=== PATIENT | female | born 2000 | race Caucasian/White ===

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

== ENCOUNTER 2021-11-24 06:00 | Inpatient (IN) | payer OTHER ==
[2021-11-24] VITALS (52 sets, daily range): BP systolic 97–148; BP diastolic 50–88
[~2021-11-24] VITALS: Ht 162 cm; Wt 87.7 kg
[2021-11-24] MEDS ORDERED: DEXTROSE 10% IV SOLUTION 1,000 ML IV PRN ×2 (06:45→09:30)
[2021-11-24] MEDS ORDERED: MINERAL OIL 30 ML TOP PRN (06:45)
[2021-11-24] MEDS ORDERED: D5W 1000 ML IV SOLUTION 1,000 ML IV SCH (06:45)
[2021-11-24 06:59] LABS: BASOPHILS # (AUTO) 0.1 10^3/uL (0.0-0.1); BASOPHILS % (AUTO) 1 % (0-10); EOSINOPHILS # (AUTO) 0.2 10^3/uL (0.0-0.3); EOSINOPHILS % (AUTO) 2 % (0-10); HEMATOCRIT 40 % (35-52); HEMOGLOBIN 13.3 g/dL (11.5-16.0); LYMPHOCYTES # (AUTO) 1.5 10^3/uL (1.0-4.0); LYMPHOCYTES % (AUTO) 15 % (12-44); MEAN CORPUSCULAR HEMOGLOBIN 30 pg (25-34); MEAN CORPUSCULAR HGB CONC 34 g/dL (32-36); MEAN CORPUSCULAR VOLUME 88 fL (80-99); MEAN PLATELET VOLUME 10.4 fL (9.0-12.2); MONOCYTES # (AUTO) 1.1 10^3/uL (0.0-1.0); MONOCYTES % (AUTO) 10 % (0-12); NEUTROPHILS # (AUTO) 7.5 10^3/uL (1.8-7.8); NEUTROPHILS % (AUTO) 72 % (42-75); PLATELET COUNT 238 10^3/uL (130-400); WHITE BLOOD COUNT 10.4 10^3/uL (4.3-11.0)
[2021-11-24] MEDS ORDERED: LACTATED RINGERS 1,000 ML IV SCH (07:45)
[2021-11-24] MEDS ORDERED: AMPICILLIN FOR IV USE 2,000 MG in NS (IVPB) 50 ML IV SCH (08:24)
[2021-11-24] MEDS: OXYTOCIN PRE-MIX DRIP 500 ML IV SCH ×4 (08:40→20:20)
[2021-11-24] MEDS ORDERED: INSU100I10 SQ (08:54)
[2021-11-24] MEDS ORDERED: INSU100I23 SQ (08:54)
--- NOTE | 2021-11-24 08:55 | History & Physical-OB ---
OB - Chief Complaint & HPI Date/Time Date of Admission: Date of Admission: Nov 24, 2021 at 06:15 Date seen by a Provider: Nov 24, 2021 Time Seen by a Provider: 08:35 Chief Complaint/History OB-Reason for Admission/Chief: Obstetrical Complication Hx : 1 Hx Para: 0 Expected Date of Delivery: Nov 30, 2021 Gestational Age in Weeks: 39 Gestational Age in Days: 1 Indication for induction: medical complication (pre-existing type I diabetes) History of Labs O+, antibody neg, RNI. HIV/HepB/RPR NR. GC/chlamydia neg. GBS pos. Other Type I diabetes complicating , followed with high risk throughout , using carb counting for insulin dosing at home. Reassuring weekly BPPs and EFW was 3330 on 11/19. Allergies and Home Medications Allergies Coded Allergies: No Known Drug Allergies (Unverified , 09/06/17) Patient Home Medication List Home Medication List Reviewed: Yes Insulin Glargine,Hum.rec.anlog (Lantus Solostar) 100 Unit/Ml (3 Ml) Insuln.pen, 38 UNIT SQ HS, (Reported) Entered as Reported by: AWA HOWELL on 11/24/21853 Last Action: New Order Insulin Lispro (Humalog Kwikpen) 100 Unit/Ml Insuln.pen, 100 UNIT SQ TIDAC, (Reported) Entered as Reported by: AWA HOWELL on 11/24/21853 Last Action: New Order OB - History Hx of Present Care: Yes Ultrasounds: Normal mid trimester US Obstetrical Complications: Other (type I diabetes) Information Induced Hypertension: No Maternal Gestational Diabetes: Yes Hemorrhage: No Obstetrical History Hx : 1 Hx Para: 0 Hx # Term Pregnancies: 0 Hx # Pregnancies: 0 Number of Living Children: 0 Hx Multiple Gestation: No Hx Ectopic : No Hx Stillbirth: No Hx Induced Hypertens: No Hx Maternal Gestational Diabet: Yes Patient Past Medical History PMHx: Type I diabetes SurgHx: denies Social History/Family History Alcohol Use: Denies Use Recreational Drug Use: No Smoking Cessation: Never smoker 2nd Hand Smoke Exposure: No Immunizations Influenza Vaccine Up-to-Date: Yes; Up-to-Date First/Initial COVID19 Vaccine: 12/29/2020 Second COVID19 Vaccination: `01/30/2021 Tetanus Booster (TDap): Less than 5yrs (10/02/21) Rubella: not immune RPR/VDRL: Negative GBS Status: Positive HBsAG: Negative OB - Admission Exam Physical Exam Vitals: Vital Signs 11/24/21 06:39 Temp 36.7 Pulse 102 Resp 18 Pulse Ox 97 O2 Delivery Room Air HEENT: NCAT Abdomen: Non tender Extremities: Normal Cervical Dilatation: 3cm Effacement: 50% Station: -2 Membranes: Intact Heart Rate: 150's Decelerations: No Decelerations Short Term Variability: Present Intermediate Variability: Average (6-25) Contractions on Admission: 6-10 Minutes Apart Marcum Scoring Tool (Modified) Dilation (cm): 3-4cm (2) Effacement (%): 31-51% (1) Descent/Station: -2 (1) Cervix Consistency: Soft (2) Cervix Position: Anterior (2) Subtract 1 point for: Nulliparity (-1) Marcum Score: 7 Labs Laboratory Tests Test 11/24/21 06:40 Range/Units White Blood Count 10.4 4.3-11.0 10^3/uL Red Blood Count 4.47 3.80-5.11 10^6/uL Hemoglobin 13.3 11.5-16.0 g/dL Hematocrit 40 35-52 % Mean Corpuscular Volume 88 80-99 fL Mean Corpuscular Hemoglobin 30 25-34 pg Mean Corpuscular Hemoglobin Concent 34 32-36 g/dL Red Cell Distribution Width 12.9 10.0-14.5 % Platelet Count 238 130-400 10^3/uL Mean Platelet Volume 10.4 9.0-12.2 fL Immature Granulocyte % (Auto) 1 % Neutrophils (%) (Auto) 72 42-75 % Lymphocytes (%) (Auto) 15 12-44 % Monocytes (%) (Auto) 10 0-12 % Eosinophils (%) (Auto) 2 0-10 % Basophils (%) (Auto) 1 0-10 % Neutrophils # (Auto) 7.5 1.8-7.8 10^3/uL Lymphocytes # (Auto) 1.5 1.0-4.0 10^3/uL Monocytes # (Auto) 1.1 H 0.0-1.0 10^3/uL Eosinophils # (Auto) 0.2 0.0-0.3 10^3/uL Basophils # (Auto) 0.1 0.0-0.1 10^3/uL Immature Granulocyte # (Auto) 0.1 0.0-0.1 10^3/uL Glucose Level 159 H 70-105 MG/DL OB - Assessment/Plan/Diagnosis Assessment Admission Dx Term intrauterine at 39w1d Type I diabetes complicating GBS positive Rubella non-immune Admission Status: Inpatient Order (span 2 midnights) Reason for Inpatient Admission: Labor, delivery and course Plan Plan: Induction Induction Method: per Pitocin Protocol Problems: (1) Encounter for induction of labor Assessment & Plan: Pitocin per protocol (2) Positive testing for group B Streptococcus Assessment & Plan: Ampicillin (3) Rubella non-immune status, antepartum Assessment & Plan: MMR (4) Type 1 diabetes mellitus complicating , antepartum Assessment & Plan: Insulin drip, will use protocol published by Eliel et al. AWA HOWELL MD Nov 24, 2021 08:55
[2021-11-24] MEDS ORDERED: inSUlin (REGULAR) HUMAN 1 UNIT/0.01 ML (CHARGE PER UNIT) SC NR (09:12)
[2021-11-24] MEDS ORDERED: inSUlin (REGULAR) HUMAN 1 UNIT/0.01 ML (CHARGE PER UNIT) IV NR (09:31)
[2021-11-24] MEDS: inSUlin (REGULAR) HUMAN 1 UNIT/0.01 ML (CHARGE PER UNIT) IV SCH ×2 (12:32→18:55)
[2021-11-24] MEDS: AMPICILLIN FOR IV USE 1,000 MG in NS (IVPB) 50 ML IV SCH ×2 (12:40→17:02)
--- NOTE | 2021-11-24 12:47 | Labor Progress Note ---
Labor Progress Note Labor Progress Note Date Seen by Provider: Nov 24, 2021 Time Seen by Provider: 12:30 Subjective: Pt denies complaints. Objective: Cervical exam: /-3 Consistency: soft Position: anterior Presentation: vertex heart tones: 160 beats per minute, moderate variability, reactive Tocometer: 5 ctx/10 minutes Assessment/Plan: Anjali Piña is a (21 /Para 1 / 0,Gestational Age (wks)39 here for induction of labor due to type I diabetes complicating . AROM done at time of exam with clear fluid return. CEFM/TOCO Continue pitocin Anesthesia: none Anticipate vaginal delivery. Vitals - Labs Vital Signs - I&O Vital Signs Date Time Temp Pulse Resp B/P (MAP) Pulse Ox O2 Delivery O2 Flow Rate FiO2 11/24/21 10:45 83 20 115/69 (84) 100 Room Air 11/24/21 10:30 80 20 124/70 (88) 98 Room Air 11/24/21 10:15 80 20 114/71 (85) 100 Room Air 11/24/21 10:00 80 20 114/71 (85) 100 Room Air 11/24/21 09:45 86 22 100 Room Air 11/24/21 09:30 88 22 121/74 (90) 99 Room Air 11/24/21 09:15 88 22 121/74 (90) 100 Room Air 11/24/21 09:00 98 22 116/75 (89) 100 Room Air 11/24/21 09:00 94 22 117/74 (88) 100 Room Air 11/24/21 08:45 81 22 118/74 (89) 100 Room Air 11/24/21 08:30 36.3 93 20 106/63 (77) 100 Room Air 11/24/21 06:39 36.7 102 18 97 Room Air Labs Laboratory Tests 11/24/21 06:40: White Blood Count 10.4, Red Blood Count 4.47, Hemoglobin 13.3, Hematocrit 40, Mean Corpuscular Volume 88, Mean Corpuscular Hemoglobin 30, Mean Corpuscular Hemoglobin Concent 34, Red Cell Distribution Width 12.9, Platelet Count 238, Mean Platelet Volume 10.4, Immature Granulocyte % (Auto) 1, Neutrophils (%) (Auto) 72, Lymphocytes (%) (Auto) 15, Monocytes (%) (Auto) 10, Eosinophils (%) (Auto) 2, Basophils (%) (Auto) 1, Neutrophils # (Auto) 7.5, Lymphocytes # (Auto) 1.5, Monocytes # (Auto) 1.1H, Eosinophils # (Auto) 0.2, Basophils # (Auto) 0.1, Immature Granulocyte # (Auto) 0.1, Glucose Level 159H AWA HOWELL MD Nov 24, 2021 12:47
[2021-11-24] MEDS ORDERED: CATHETER FLUSH 10 ML SYR IV SCH (14:00)
[2021-11-24] MEDS ORDERED: fentaNYL INJ 100 MCG/2 ML AMP ONE (17:05)
[2021-11-24] MEDS ORDERED: fentaNYL INJ 100 MCG/2 ML AMP IVP PRN (17:15)
[2021-11-24] MEDS ORDERED: LIDOCAINE/EPI 2% 1:200,00 (XYLOCAINE) 10 ML VIAL ONE (17:52)
[2021-11-24] MEDS ORDERED: LIDOCAINE/EPI 2% 1:200,00 (XYLOCAINE) 10 ML VIAL IJ ONE (17:54)
[2021-11-24] MEDS ORDERED: LIDOCAINE/EPI 2% 1:200,00 (XYLOCAINE) 20 ML VIAL INJ PRN (18:00)
[2021-11-24] MEDS ORDERED: inSUlin ASPART (NovoLOG) 1 UNIT/0.01 ML (CHARGE PER UNIT) SC SCH (20:00)
[2021-11-24] MEDS ORDERED: inSUlin ASPART (NovoLOG) 1 UNIT/0.01 ML (CHARGE PER UNIT) ONE (20:04)
--- NOTE | 2021-11-24 20:56 | OB Labor & Delivery Record ---
Vag Delivery Note Vag Delivery Note Date of Delivery: 11/24/21 Preoperative Diagnosis: Anjali Piña is a (21 /Para 1 / 0,Gestational Age (wks)39with 1 day Postoperative Diagnosis: Same Surgeon: AWA HOWELL Sorting Grapple Operator: Elder López, OMS4 Anesthesia: None Delivery Type: Findings: Viable female , apgars 8/9, weight 7#14 Lacerations: first degree perineal laceration, right periurethral laceration Intact placenta with 3 vessel cord. Shoulder dystocia, one minute. No nuchal c ord, body cord. Estimated Blood Loss: 350 ml Complications: None Condition: Stable Description of Procedure: The patient is a 21 year old female who presented for induction of labor due to type 1 diabetes complicating . She was admitted and informed consent was obtained. Her labor course was unremarkable. She progressed to complete dilatation and began to push. She was then set up for delivery. The 's head was delivered atraumatically in the OA position. The anterior shoulder (right) did not delivery immediately, patient was placed in McRobert's position and the shoulder still did not delivery immediately, so suprapubic pressure was applied from maternal left behind the infant's anterior shoulder, after which the shoulders and remainder of the infant's body were then delivered without difficulty within one minute of delivery of head. Upon delivery the was placed on maternal abdomen and was vigorous. The cord was doubly clamped and cut and the infant was handed off to the pediatric staff. An intact placenta with 3-vessel cord delivered via Mitchell after 33 minutes and there was found to be minimal bleeding.~ Vigorous fundal massage was performed and the fundus was found to be firm. IV oxytocin was given. Examination of the vagina and perineum revealed a first degree perineal laceration and right periurethral laceration repaired in simple running fashion with 3-0 vicryl suture. Following the repair, sponge, instrument and needle counts were correct. Mom and baby were both in stable condition in the labor suite. Vitals - Labs Vital Signs - I&O Vital Signs Date Time Temp Pulse Resp B/P (MAP) Pulse Ox O2 Delivery O2 Flow Rate FiO2 11/24/21 18:58 91 20 129/69 (89) 100 Room Air 11/24/21 18:45 114 20 148/88 (108) 100 Room Air 11/24/21 18:30 91 20 130/59 (82) 100 Non Rebreather 10.00 11/24/21 18:15 83 20 135/75 (95) 100 Non Rebreather 10.00 11/24/21 18:00 36.7 107 20 132/87 (102) 100 Non Rebreather 10.00 11/24/21 17:45 83 20 146/74 (98) 100 Non Rebreather 10.00 11/24/21 17:30 83 20 124/78 (93) 100 Non Rebreather 10.00 11/24/21 17:15 81 20 115/70 (85) 100 Non Rebreather 10.00 11/24/21 17:00 94 20 120/73 (89) 100 Non Rebreather 10.00 11/24/21 16:45 66 20 121/69 (86) 100 Non Rebreather 10.00 11/24/21 16:30 69 20 126/60 (82) 100 Non Rebreather 10.00 11/24/21 16:15 94 20 129/59 (82) 100 Non Rebreather 10.00 11/24/21 16:00 74 20 100 Non Rebreather 10.00 11/24/21 15:45 36.6 87 20 121/76 (91) 100 Non Rebreather 10.00 11/24/21 15:30 91 20 117/73 (88) 100 Non Rebreather 10.00 11/24/21 15:15 68 20 121/73 (89) 100 Non Rebreather 10.00 11/24/21 15:00 75 20 127/84 (98) 100 Non Rebreather 10.00 11/24/21 14:45 85 20 127/85 (99) 100 Non Rebreather 10.00 11/24/21 14:30 78 20 119/78 (92) 100 Non Rebreather 10.00 11/24/21 14:15 81 20 119/70 (86) 100 Non Rebreather 10.00 11/24/21 14:00 74 20 130/70 (90) 100 Non Rebreather 10.00 11/24/21 13:45 77 20 110/76 (87) 100 Non Rebreather 10.00 11/24/21 13:30 71 20 116/73 (87) 100 Non Rebreather 10.00 11/24/21 13:15 88 20 115/72 (86) 100 Non Rebreather 10.00 11/24/21 13:00 68 20 119/71 (87) 100 Non Rebreather 10.00 11/24/21 12:45 78 20 117/69 (85) 100 Room Air 11/24/21 12:30 84 20 116/71 (86) 99 Room Air 11/24/21 12:15 82 20 120/70 (87) 99 Room Air 11/24/21 12:00 75 20 125/65 (85) 100 Room Air 11/24/21 11:45 37.2 83 20 115/70 (85) 100 Room Air 11/24/21 11:30 93 20 131/73 (92) 100 Room Air 11/24/21 11:15 93 20 131/73 (92) 100 Room Air 11/24/21 11:00 88 20 115/73 (87) 100 Room Air 11/24/21 10:45 83 20 115/69 (84) 100 Room Air 11/24/21 10:30 80 20 124/70 (88) 98 Room Air 11/24/21 10:15 80 20 114/71 (85) 100 Room Air 11/24/21 10:00 80 20 114/71 (85) 100 Room Air 11/24/21 09:45 86 22 100 Room Air 11/24/21 09:30 88 22 121/74 (90) 99 Room Air 11/24/21 09:15 88 22 121/74 (90) 100 Room Air 11/24/21 09:00 98 22 116/75 (89) 100 Room Air 11/24/21 09:00 94 22 117/74 (88) 100 Room Air 11/24/21 08:45 81 22 118/74 (89) 100 Room Air 11/24/21 08:30 36.3 93 20 106/63 (77) 100 Room Air 11/24/21 06:39 36.7 102 18 97 Room Air Labs Laboratory Tests 11/24/21 06:40: White Blood Count 10.4, Red Blood Count 4.47, Hemoglobin 13.3, Hematocrit 40, Mean Corpuscular Volume 88, Mean Corpuscular Hemoglobin 30, Mean Corpuscular Hemoglobin Concent 34, Red Cell Distribution Width 12.9, Platelet Count 238, Mean Platelet Volume 10.4, Immature Granulocyte % (Auto) 1, Neutrophils (%) (Au to) 72, Lymphocytes (%) (Auto) 15, Monocytes (%) (Auto) 10, Eosinophils (%) (Auto) 2, Basophils (%) (Auto) 1, Neutrophils # (Auto) 7.5, Lymphocytes # (Auto) 1.5, Monocytes # (Auto) 1.1H, Eosinophils # (Auto) 0.2, Basophils # (Auto) 0.1, Immature Granulocyte # (Auto) 0.1, Glucose Level 159H AWA HOWELL MD Nov 24, 2021 20:56
[2021-11-24] MEDS ORDERED: BENZOCAINE/MENTHOL (DERMOPLAST) 56 ML CAN TP PRN (21:00)
[2021-11-24] MEDS ORDERED: MEASLES,MUMPS,RUBELLA 1 EA INJ SQ ONE (21:00)
[2021-11-24] MEDS ORDERED: WITCH HAZEL(TUCKS) 40 EA JAR TOP PRN (21:00)
[2021-11-24] MEDS: inSUlin ASPART (NovoLOG) 1 UNIT/0.01 ML (CHARGE PER UNIT) SC SCH ×2 (21:32→22:37)
[2021-11-24] MEDS ORDERED: inSUlin ASPART (NovoLOG) 1 UNIT/0.01 ML (CHARGE PER UNIT) SC ONE (21:45)
[2021-11-24] MEDS ORDERED: IBUPROFEN 600 MG (MOTRIN) TAB PO ONE (22:14)
[2021-11-24] MEDS: DOCUSATE SODIUM 100 MG (COLACE) CAP PO SCH (22:16)
[2021-11-24] MEDS: IBUPROFEN 600 MG (MOTRIN) TAB PO SCH (22:17)
[2021-11-24] MEDS: CATHETER FLUSH 10 ML SYR IV SCH (23:01)
[2021-11-24] MEDS ORDERED: LIDOCAINE/EPI 2% 1:200,00 (XYLOCAINE) 10 ML VIAL INJ PRN (23:15)
[2021-11-25 00:15] VITALS: BP 110/61
[2021-11-25] MEDS: inSUlin ASPART (NovoLOG) 1 UNIT/0.01 ML (CHARGE PER UNIT) SC SCH ×6 (00:21→21:00)
[2021-11-25] MEDS ORDERED: MINERAL OIL 30 ML TOP PRN (02:30)
[2021-11-25 04:21] VITALS: BP 107/55
[2021-11-25] MEDS: IBUPROFEN 600 MG (MOTRIN) TAB PO SCH ×4 (04:21→21:39)
--- NOTE | 2021-11-25 06:59 | Progress Note ---
Subjective Subjective/Events-last exam Afebrile, no acute events, denies shortness of breath or dizziness. Objective Exam Last Set of Vital Signs Vital Signs Date Time Temp Pulse Resp B/P (MAP) Pulse Ox O2 Delivery O2 Flow Rate FiO2 11/25/21 04:21 37.0 119 18 107/55 (72) 97 Room Air 11/24/21 18:30 10.00 Capillary Refill : Less Than 3 Seconds I&O Intake and Output 11/24/21 23:59 Intake Total 1659 ml Balance 1659 ml Intake IV Total 1659 ml Daily Weight Change No General: Alert, No Acute Distress Lungs: Clear to Auscultation, Normal Air Movement Heart: Regular Rate, No Murmurs Abdomen: Other (fundus firm below umbilicus) Extremities: Other (trace edema) Neuro: Normal Speech Psych/Mental Status: Mood NL Assessment/Plan Assessment/Plan (1) Diabetes mellitus type 1 Status: Chronic Assessment & Plan: Resume insulin at half home dose due to being delivered, w ill adjust/increase as needed. Qualifiers: Qualified Codes: E10.65 - Type 1 diabetes mellitus with hyperglycemia (2) Spontaneous vaginal delivery Status: Acute Assessment & Plan: with first degree perineal and right periurethral laceration repair. Routine care. (3) Acute blood loss anemia Status: Acute Assessment & Plan: Ferrous sulfate. AWA HOWELL MD Nov 25, 2021 06:59
[2021-11-25 08:20] VITALS: BP 100/60
[2021-11-25 08:31] LABS: BASOPHILS # (AUTO) 0.1 10^3/uL (0.0-0.1); BASOPHILS % (AUTO) 0 % (0-10); EOSINOPHILS % (AUTO) 0 % (0-10); HEMATOCRIT 31 % (35-52); HEMOGLOBIN 10.2 g/dL (11.5-16.0); LYMPHOCYTES # (AUTO) 1.4 10^3/uL (1.0-4.0); LYMPHOCYTES % (AUTO) 9 % (12-44); MEAN CORPUSCULAR HEMOGLOBIN 30 pg (25-34); MEAN CORPUSCULAR HGB CONC 33 g/dL (32-36); MEAN CORPUSCULAR VOLUME 91 fL (80-99); MEAN PLATELET VOLUME 10.5 fL (9.0-12.2); MONOCYTES # (AUTO) 1.5 10^3/uL (0.0-1.0); MONOCYTES % (AUTO) 10 % (0-12); NEUTROPHILS # (AUTO) 12.6 10^3/uL (1.8-7.8); NEUTROPHILS % (AUTO) 80 % (42-75); PLATELET COUNT 196 10^3/uL (130-400); WHITE BLOOD COUNT 15.7 10^3/uL (4.3-11.0)
[2021-11-25] MEDS: DOCUSATE SODIUM 100 MG (COLACE) CAP PO SCH ×2 (10:34→21:39)
[2021-11-25 12:30] VITALS: BP 110/60
[2021-11-25 16:34] VITALS: BP 120/57
[2021-11-25] MEDS: CATHETER FLUSH 10 ML SYR IV SCH (20:28)
[2021-11-25 21:39] VITALS: BP 114/69
[2021-11-26 04:37] VITALS: BP 106/60
[2021-11-26] MEDS: IBUPROFEN 600 MG (MOTRIN) TAB PO SCH ×2 (04:37→10:20)
[2021-11-26] MEDS ORDERED: FERROUS SULF 325 MG (IRON) TAB PO SCH (07:00)
[2021-11-26 09:36] VITALS: BP 106/60
[2021-11-26] MEDS ORDERED: FERR325T24 PO (10:12)
[2021-11-26] MEDS ORDERED: INSU100I23 SQ (10:12)
[2021-11-26] MEDS ORDERED: IBUP-844 PO (10:12)
[2021-11-26] MEDS ORDERED: INSU100I10 SQ (10:12)
--- NOTE | 2021-11-26 10:12 | Discharge Summary ---
Discharge Summary Hospital Course Problems/Diagnosis: (1) Diabetes mellitus type 1 Status: Chronic Assessment & Plan: Resumed insulin at half home dose due to being delivered. Checking her own glucose with home glucometer inpatient, reported blood sugar in the 120s throughout day of d/c. Qualifiers: Qualified Codes: E10.65 - Type 1 diabetes mellitus with hyperglycemia (2) Spontaneous vaginal delivery Status: Acute Assessment & Plan: with shoulder dystocia and with first degree perineal and right periurethral laceration repair. Routine care. (3) Acute blood loss anemia Status: Acute Assessment & Plan: Ferrous sulfate. Hospital Course Date of Admission: Nov 24, 2021 at 06:15 Admission Diagnosis : Family Physician/Provider: [place] [place],[facility] [place] Date of Discharge: 11/26/21 Discharge Diagnosis: See problem list Hospital Course: See problem list Labs and Pending Lab Test: Home Meds Active Reported Lantus Solostar (Insulin Glargine,Hum.rec.anlog) 100 Unit/Ml (3 Ml) Insuln.pen 38 Unit SQ HS Humalog Kwikpen (Insulin Lispro) 100 Unit/Ml Insuln.pen 100 Unit SQ TIDAC 1 unit per 4 carbs for breakfast and dinner, 1 unit to 3 carbs for lunch Assessment/Pt DC Instructions Follow up with Dr. Rayo in 6 weeks for visit Discharge Diet: ADA Diet Activity as Tolerated: Yes (avoid strenuous activity x 6 weeks) Discharge Physical Examination Allergies: Coded Allergies: No Known Drug Allergies (Unverified , 09/06/17) General Appearance: No Apparent Distress, WD/WN Respiratory: Lungs Clear Cardiovascular: Regular Rate, Rhythm, No Murmur Extremity: Swelling Skin: Normal Color, Warm/Dry Neurologic/Psychiatric: Alert, Normal Mood/Affect AWA RAYO MD Nov 26, 2021 10:12
[2021-11-26] MEDS: DOCUSATE SODIUM 100 MG (COLACE) CAP PO SCH (10:20)
[2021-11-26 10:21] VITALS: BP 119/65
[2021-11-26] MEDS: inSUlin ASPART (NovoLOG) 1 UNIT/0.01 ML (CHARGE PER UNIT) SC SCH ×2 (10:21→10:28)
[2021-11-26] MEDS ORDERED: MEASLES,MUMPS,RUBELLA 1 EA INJ ONE (10:25)
== END 2021-11-26 10:45 | disposition home or self-care (01) | DRG 806 ==
LOC: LDRP 06:15
PROVIDERS: ADMIT Family Medicine; ATTEND Family Medicine
PROC: 10E0XZZ Delivery of Products of Conception, External Approach (ICD-10-PCS; principal; 2021-11-24)
PROC: 10907ZC Drainage of Amniotic Fluid, Therapeutic from Products of Conception, Via Natural or Artificial Opening (ICD-10-PCS; 2021-11-24)
PROC: 0HQ9XZZ Repair Perineum Skin, External Approach (ICD-10-PCS; 2021-11-24)
PROC: 0UQMXZZ Repair Vulva, External Approach (ICD-10-PCS; 2021-11-24)
DX: O24.02 Pre-existing type 1 diabetes mellitus, in childbirth (principal); D62 Acute posthemorrhagic anemia; Z37.0 Single live birth; O99.824 Streptococcus B carrier state complicating childbirth; Z3A.39 39 weeks gestation of pregnancy; Z79.4 Long term (current) use of insulin; O70.0 First degree perineal laceration during delivery; O71.82 Other specified trauma to perineum and vulva; O90.81 Anemia of the puerperium
CPT/HCPCS: 36415; 82947; 85025; 86850; 86900; 86901; 90707